=== PATIENT | female | born 1965 | race Caucasian/White ===

== ENCOUNTER → 2018-01-18 13:21 | Outpatient (CLI) | payer OTHER, SELFPAY ==
--- NOTE | 2018-01-18 | DI.RAD.S_ITS ---
PROCEDURE: XR WRIST LT MIN 3V INDICATIONS: LEFT WRIST PAIN TECHNIQUE: 4 views of the wrist were acquired. COMPARISON: None. FINDINGS: Bones: No fractures or dislocations. No suspicious bony lesions. Arthritic changes at the distal radial ulnar articulation and basilar joint of the thumb Scaphoid view: Normal scaphoid Soft tissues: Calcifications are present in the triangular fibrocartilage complex. IMPRESSION: 1. Negative for fracture. 2. Osteoarthritis. 3. Chondrocalcinosis Dictated by: Joseph Monae M.D. on 01/18/2018 at 13:42 Approved by: Joseph Monae M.D. on 01/18/2018 at 13:44
== END ==
PROVIDERS: PCP Nurse Practitioner Family; Visit Provider Internal Medicine
DX: M19.032 Primary osteoarthritis, left wrist (principal); M11.232 Other chondrocalcinosis, left wrist; M25.532 Pain in left wrist
CPT/HCPCS: 73110